=== PATIENT | male | born 1965 | race Caucasian/White ===

== ENCOUNTER → 2018-01-14 | Outpatient (CLI) | payer MEDICAID ==
[2018-01-14 09:33] LABS: ALANINE AMINOTRANSFERASE 61 U/L (21-72); CHOLESTEROL 147.82 mg/dL (0-200); TRIGLYCERIDES 108 mg/dL (<150)
[2018-01-14 09:44] LABS: DIRECT LDL 89 mg/dL (<100)
== END ==
LOC: OD 08:02
PROVIDERS: ATTEND Family Medicine Geriatric Medicine
DX: E78.4 Other hyperlipidemia (principal); Z79.899 Other long term (current) drug therapy
CPT/HCPCS: 36415; 80061; 84460

== ENCOUNTER 2018-04-16 18:54 | Emergency (ER) | payer MEDICAID ==
[2018-04-16 19:08] VITALS: BP 147/90
[2018-04-16] MEDS ORDERED: ASPIRIN 81 MG TABLET, CHEWABLE PO ONE (19:28)
--- NOTE | 2018-04-16 19:56 | RADIOLOGY REPORT (SQ) ---
EXAM DESCRIPTION: CHEST SINGLE VIEW COMPLETED DATE/TIME: 04/16/2018 7:38 pm REASON FOR STUDY: cp COMPARISON: None. EXAM PARAMETERS: NUMBER OF VIEWS: One view. TECHNIQUE: Single frontal radiographic view of the chest acquired. RADIATION DOSE: NA LIMITATIONS: None. FINDINGS: LUNGS AND PLEURA: Minimal linear subsegmental atelectasis -scarring in the lung bases. No consolidation, masses or pneumothorax. No pleural effusion. MEDIASTINUM AND HILAR STRUCTURES: No masses. Contour normal. HEART AND VASCULAR STRUCTURES: Heart normal in size. Normal vasculature. BONES: No acute findings. HARDWARE: Spinal nerve stimulator. Lower thoracic hardware. OTHER: No other significant finding. IMPRESSION: Minimal linear subsegmental atelectasis -scarring in the lung bases. No consolidation. TECHNICAL DOCUMENTATION: JOB ID: [id number] [id number] [employer]- All Rights Reserved Reading location - IP/workstation name: [email or web address]
--- NOTE | 2018-04-16 20:22 | ER Document Report ---
ED Medical Screen (RME) - General Chief Complaint: Chest Pain Stated Complaint: CHEST PAIN/SOB Time Seen by Provider: 04/16/18 20:08 Notes: Patient says that he was sitting in a chair when he suddenly experienced pain in the left chest. He says he felt short of breath and was taking deep breaths and the episode lasted for 5-10 minutes and then went away. Patient has never had anything like this before. He has had a low-grade fever today. Patient has a history of strokes and a right carotid endarterectomy in 2011. He has high cholesterol. Takes a baby aspirin daily. Continues to smoke, however. TRAVEL OUTSIDE OF THE [place] IN LAST 30 DAYS: No - Related Data Allergies/Adverse Reactions: No Known Allergies Allergy (Unverified 04/16/18 18:56) Past Medical History - Social History Chew tobacco use (# tins/day): No Frequency of alcohol use: quit 5yrs ago - Past Medical History Cardiac Medical History: Reports: Hx Hypercholesterolemia Renal/ Medical History: Denies: Hx Peritoneal Dialysis Past Surgical History: Reports: Hx Orthopedic Surgery - back surgery Physical Exam - Vital signs Vitals: Temp Pulse Resp BP Pulse Ox 98.4 F 113 H 16 147/90 H 98 04/16/18 19:08 04/16/18 19:08 04/16/18 19:08 04/16/18 19:08 04/16/18 19:08 Course - Vital Signs Vital signs: Temp Pulse Resp BP Pulse Ox 98.4 F 113 H 16 147/90 H 98 04/16/18 19:08 04/16/18 19:08 04/16/18 19:08 04/16/18 19:08 04/16/18 19:08 Doctor's Discharge - Discharge Referrals: DOMINIQUE HARDIN MD [Primary Care Provider] - Follow up as needed
[2018-04-16 20:32] LABS: ABSOLUTE BASOPHILS # (AUTO) 0.1 10^3/uL (0.0-0.2); ABSOLUTE LYMPHOCYTES (AUTO) 2.7 10^3/uL (0.5-4.7); ABSOLUTE MONOCYTES (AUTO) 1.4 10^3/uL (0.1-1.4); ABSOLUTE NEUT (AUTO) 11.7 10^3/uL (1.7-8.2); BASOPHILS % (AUTO) 0.8 % (0-2); HEMATOCRIT 39.9 % (37.9-51.0); HEMOGLOBIN 13.5 g/dL (13.5-17.0); LYMPHOCYTES % (AUTO) 17.1 % (13-45); MEAN CORPUSCULAR HEMOGLOBIN 27.7 pg (27.0-33.4); MEAN CORPUSCULAR HGB CONC 33.8 g/dL (32.0-36.0); MEAN CORPUSCULAR VOLUME 82 fl (80-97); MONOCYTES % (AUTO) 8.8 % (3-13); PLATELET COUNT 555 10^3/uL (150-450); RED BLOOD COUNT 4.87 10^6/uL (4.35-5.55); SEGMENTED NEUTROPHILS % (AUTO) 73.3 % (42-78); TOTAL CELLS COUNTED % (AUTO) 100 %
[2018-04-16 21:00] LABS: ALANINE AMINOTRANSFERASE 41 U/L (21-72); ALBUMIN 4.2 g/dL (3.5-5.0); ALKALINE PHOSPHATASE 98 U/L (38-126); ANION GAP 14 (5-19); ASPARTATE AMINO TRANSFERASE 29 U/L (17-59); BILIRUBIN,DIRECT 0.3 mg/dL (0.0-0.4); BILIRUBIN,TOTAL 0.5 mg/dL (0.2-1.3); BLOOD UREA NITROGEN 13 mg/dL (7-20); CALCIUM 9.4 mg/dL (8.4-10.2); CARBON DIOXIDE 24 mmol/L (22-30); CHLORIDE 102 mmol/L (98-107); CREATINE KINASE 83 U/L (55-170); GLUCOSE 114 mg/dL (75-110); SODIUM 140.4 mmol/L (137-145); TOTAL PROTEIN 8.1 g/dL (6.3-8.2)
[2018-04-16 21:12] LABS: CREATINE KINASE MB 0.39 ng/mL (<4.55)
[2018-04-16 21:13] LABS: TROPONIN I < 0.012 ng/mL
--- NOTE | 2018-04-17 00:21 | EKG REPORT ---
SEVERITY:- OTHERWISE NORMAL ECG - SINUS TACHYCARDIA BORDERLINE LEFT AXIS DEVIATION : Confirmed by: Ruby Roper MD 17-Apr-2018 00:21:19
== END 2018-04-16 23:00 | disposition left against medical advice (07) ==
LOC: ER 18:54
DX: R07.9 Chest pain, unspecified (principal); R06.02 Shortness of breath; E78.00 Pure hypercholesterolemia, unspecified; Z79.82 Long term (current) use of aspirin; F17.200 Nicotine dependence, unspecified, uncomplicated; Z86.73 Personal history of transient ischemic attack (TIA), and cerebral infarction without residual deficits
CPT/HCPCS: 36415; 71045; 80053; 82550; 82553; 84484; 85025; 85379; 93005; 93010; 99281

== ENCOUNTER 2018-04-17 11:11 | Emergency (ER) | payer MEDICAID ==
[2018-04-17 11:24] VITALS: BP 130/88
--- NOTE | 2018-04-17 12:33 | ER Document Report ---
ED General - General Chief Complaint: Chest Pain Stated Complaint: CHEST PAIN Time Seen by Provider: 04/17/18 12:11 Notes: Patient states that he has been having chest pain, fever and cough on and off for the last couple of days. Came here yesterday and was seen at triage. Waited for approximately 5 more hours to get seen so decided to leave. Had an appointment this morning with a primary care doctor. Primary care doctor saw patient and referred back to the ER concerning for pulmonary embolism. Patient does not have any significant pulmonary embolism risk factors. No long trips or travel, no recent surgeries, not cancer. No family history of DVT or pulmonary embolism. Patient does smoke. Patient is on pain management for chronic back pain. Has been having a fever. Yesterday had a fever 102. Denies any leg pain or leg swelling. Denies any other major complaints at this time other than feeling weak. TRAVEL OUTSIDE OF THE [place] IN LAST 30 DAYS: No - HPI Onset: Yesterday Onset/Duration: Gradual, Constant Quality of pain: Achy Severity: Mild Pain Level: 1 Associated symptoms: Fever, Weakness - Related Data Allergies/Adverse Reactions: No Known Allergies Allergy (Unverified 04/16/18 18:56) Past Medical History - General Information source: Patient - Social History Smoking Status: Current Every Day Smoker Cigarette use (# per day): Yes Frequency of alcohol use: None Drug Abuse: None Lives with: Family Family History: CAD - Past Medical History Cardiac Medical History: Reports: Hx Hypercholesterolemia Renal/ Medical History: Denies: Hx Peritoneal Dialysis Past Surgical History: Reports: Hx Orthopedic Surgery - back surgery Review of Systems - Review of Systems Constitutional: Fever, Weakness. denies: Malaise EENT: denies: Eye pain, Difficulty swallowing, Throat swelling, Vertigo Cardiovascular: Chest pain. denies: Palpitations, Heart racing Respiratory: Hurts to breathe, Short of breath. denies: Cough, Wheezing Gastrointestinal: denies: Abdominal pain, Diarrhea, Nausea, Vomiting Genitourinary: denies: Burning, Flank pain, Hematuria Musculoskeletal: Back pain. denies: Joint pain, Muscle pain, Leg swelling Skin: denies: Change in color, Change in hair/nails, Dryness, Lesions, Lumps, Rash Neurological/Psychological: denies: Confusion, Weakness, Numbness Physical Exam - Vital signs Vitals: Temp Pulse Resp BP Pulse Ox 97.4 F 92 16 130/88 H 98 04/17/18 11:23 04/17/18 11:23 04/17/18 11:23 04/17/18 11:23 04/17/18 11:23 Interpretation: Normal - General General appearance: Appears well, Alert - HEENT Head: Normocephalic, Atraumatic Eyes: Normal Pupils: PERRL - Respiratory Respiratory status: No respiratory distress Chest status: Nontender Breath sounds: Other - Faint crackles bilateral lower lobes Chest palpation: Normal - Cardiovascular Rhythm: Regular Heart sounds: Normal auscultation Murmur: No - Abdominal Inspection: Normal Distension: No distension Bowel sounds: Normal Tenderness: Nontender Organomegaly: No organomegaly - Back Back: Normal, Nontender - Extremities General upper extremity: Normal inspection, Nontender, Normal color, Normal ROM , Normal temperature. No: Edema General lower extremity: Normal inspection, Nontender, Normal color, Normal ROM , Normal temperature, Normal weight bearing. No: Edema, Eileen's sign - Neurological Neuro grossly intact: Yes Cognition: Normal Orientation: AAOx4 [place] Coma Scale Eye Opening: Spontaneous Pranay Coma Scale Verbal: Oriented [place] Coma Scale Motor: Obeys Commands Pranay Coma Scale Total: 15 Speech: Normal Motor strength normal: LUE, RUE, LLE, RLE Sensory: Normal - Psychological Associated symptoms: Normal affect, Normal mood - Skin Skin Temperature: Warm Skin Moisture: Dry Skin Color: Normal Course - Re-evaluation Re-evalutation: 04/17/18 12:36 Labs yesterday reviewed. Extremely elevated d-dimer. Will get CT scan and repeat labs at this time. 04/17/18 13:55 Patient with no significant abnormalities on EKG. Slightly elevated WBC count, normal troponin, unchanged EKG, CT scan of the chest to rule out pulmonary embolism was unremarkable. Patient denies any major pain in the chest. At this time being that he is a smoker and had a slightly elevated white blood cell count fever may treat as a bronchitis. Patient is comfortable with this plan. Strict warning signs were given with regards to acute coronary syndrome and the risks thereof. Patient verbalized understanding and if he develops arm pain, nausea, chest pain, heaviness or other symptoms he should return. At this time comfortable discharging. - Vital Signs Vital signs: Temp Pulse Resp BP Pulse Ox 97.4 F 92 16 130/88 H 98 04/17/18 11:23 04/17/18 11:23 04/17/18 11:23 04/17/18 11:23 04/17/18 11:23 - Laboratory Result Diagrams: 04/17/18 12:13 04/17/18 12:13 Laboratory results interpreted by me: 04/17/18 04/17/18 12:13 12:13 WBC 13.5 H RDW 14.1 H Plt Count 547 H Absolute Neutrophils 9.6 H Glucose 112 H - EKG Interpretation by Me EKG shows normal: Sinus rhythm, [place], Intervals, QRS Complexes, ST-T Waves Discharge - Discharge Clinical Impression: Bronchitis Condition: Good Disposition: HOME, SELF-CARE Instructions: Bronchitis ([facility]) Additional Instructions: In the event that you develop worsening symptoms, chest pain, heaviness in the left arm, pain in the left arm or jaw, vomiting or other concerns please return immediately. Please follow-up with your regular doctor for further testing. Prescriptions: Albuterol Sulfate [Proair HFA Inhalation Aerosol 8.5 gm MDI] 2 puff IH Q4H PRN # 1 mdi PRN Reason: Azithromycin [Zithromax 250 mg Tablet] 250 mg PO ASDIR #6 tablet Prednisone [Deltasone 20 mg Tablet] 3 tab PO DAILY 4 Days #12 tablet Referrals: DOMINIQUE HARDIN MD [Primary Care Provider] - Follow up in 3-5 days
[2018-04-17 12:49] LABS: ABSOLUTE BASOPHILS # (AUTO) 0.2 10^3/uL (0.0-0.2); ABSOLUTE LYMPHOCYTES (AUTO) 2.4 10^3/uL (0.5-4.7); ABSOLUTE MONOCYTES (AUTO) 1.3 10^3/uL (0.1-1.4); ABSOLUTE NEUT (AUTO) 9.6 10^3/uL (1.7-8.2); BASOPHILS % (AUTO) 1.2 % (0-2); EOSINOPHILS % (AUTO) 0.2 % (0-6); HEMATOCRIT 40.2 % (37.9-51.0); HEMOGLOBIN 13.7 g/dL (13.5-17.0); MEAN CORPUSCULAR HEMOGLOBIN 28.2 pg (27.0-33.4); MEAN CORPUSCULAR HGB CONC 34.1 g/dL (32.0-36.0); MEAN CORPUSCULAR VOLUME 83 fl (80-97); MONOCYTES % (AUTO) 9.4 % (3-13); PLATELET COUNT 547 10^3/uL (150-450); RED BLOOD COUNT 4.85 10^6/uL (4.35-5.55); RED CELL DISTRIBUTION WIDTH 14.1 % (11.5-14.0); SEGMENTED NEUTROPHILS % (AUTO) 71.2 % (42-78); TOTAL CELLS COUNTED % (AUTO) 100 %; WHITE BLOOD COUNT 13.5 10^3/uL (4.0-10.5)
[2018-04-17 13:02] LABS: ALANINE AMINOTRANSFERASE 58 U/L (21-72); ALBUMIN 4.1 g/dL (3.5-5.0); ALKALINE PHOSPHATASE 105 U/L (38-126); ANION GAP 10 (5-19); ASPARTATE AMINO TRANSFERASE 46 U/L (17-59); BILIRUBIN,DIRECT 0.3 mg/dL (0.0-0.4); BILIRUBIN,TOTAL 0.4 mg/dL (0.2-1.3); BLOOD UREA NITROGEN 14 mg/dL (7-20); CALCIUM 9.3 mg/dL (8.4-10.2); CARBON DIOXIDE 25 mmol/L (22-30); CHLORIDE 107 mmol/L (98-107); GLUCOSE 112 mg/dL (75-110); POTASSIUM 4.1 mmol/L (3.6-5.0); SODIUM 142.4 mmol/L (137-145); TOTAL PROTEIN 7.8 g/dL (6.3-8.2)
--- NOTE | 2018-04-17 13:23 | RADIOLOGY REPORT (SQ) ---
EXAM DESCRIPTION: CTA CHEST COMPLETED DATE/TIME: 04/17/2018 1:09 pm REASON FOR STUDY: chest pain COMPARISON: Chest x-ray dated 04/16/2018 TECHNIQUE: CT scan of the chest performed using helical scanning technique with dynamic intravenous contrast injection. Images reviewed with lung, soft tissue and bone windows. Reconstructed coronal and sagittal MPR images reviewed. Additional 3 dimensional post-processing performed to develop Maximal Intensity Projection images (MD P). All images stored on PACS. All CT scanners at this facility use dose modulation, iterative reconstruction, and/or weight based d osing when appropriate to reduce radiation dose to as low as reasonably achievable (ALARA). [facility]: Dose Right [facility]: CareDose [facility]: Dose Right [facility]: Teradose 4D [facility]: [place] CONTRAST TYPE AND DOSE: contrast/concentration: Isovue 370.00 mg/ml; Total Contrast Delivered: 73.0 ml; Total Saline Delivered: 90.0 ml Contrast bolus optimized for the pulmonary arteries. Not diagnostic for the aorta. RENAL FUNCTION: Creatinine 0.87 RADIATION DOSE: CT Rad equipment meets quality standard of care and radiation dose reduction techniq ues were employed. CTDIvol: 13.2 - 17.1 mGy. DLP: 621 mGy-cm. . LIMITATIONS: Artifact is identified related to orthopedic hardware at the thoracolumbar junction FINDINGS: LUNGS AND PLEURA: No masses, infiltrates, or pneumothorax. No pleural effusions or pleura l calcifications. Calcified granuloma are identified at the level of the right middle lobe and right lower lobe. AORTA AND GREAT VESSELS: No aneurysm. Contrast bolus not optimized for the aorta. HEART: No pericardial effusion. No significant coronary artery calcifications. PULMONARY ARTERIES: No emboli visualized in the main pulmonary arteries or the segmental branches. HILAR AND MEDIASTINAL STRUCTURES: Calcified granuloma are identified in both hilar regions. HARDWARE: None in the chest. UPPER ABDOMEN: No significant findings. Limited exam. THYROID AND OTHER SOFT TISSUES: No masses. No adenopathy. BONES: No acute or significant finding. 3D MIPS: Confirm above findings. OTHER: No other significant finding. IMPRESSION: No evidence for pulmonary embolic disease. No acute consolidations or pleural effusions . Old granulomatous disease. Other findings as noted above. COMMENT: Quality ID # [id number]: Final reports with documentation of one or more dose reduction techniques (e.g., Automated exposure control, adjustment of the mA and/or kV according to patient size, use of iterative reconstruction technique) TECHNICAL DOCUMENTATION: JOB ID: [id number] [employer]- All Rights Reserved Reading location - IP/workstation name: [email or web address]
[2018-04-17] MEDS ORDERED: ALBUTEROL SULFATE HFA (90 MCG/PUFF) 8 GM MDI (1 MDI/ER DISP) IH ONE (13:57)
[2018-04-17] MEDS ORDERED: PREDNISONE 20 MG TABLET PO ONE (13:57)
--- NOTE | 2018-04-17 15:13 | EKG REPORT ---
SEVERITY:- ABNORMAL ECG - SINUS RHYTHM PROBABLE INFERIOR INFARCT, OLD : Confirmed by: Ruby Roper MD 17-Apr-2018 15:12:32
== END 2018-04-17 14:33 | disposition home or self-care (01) ==
LOC: ER 11:11
DX: J40 Bronchitis, not specified as acute or chronic (principal); R79.1 Abnormal coagulation profile; R50.9 Fever, unspecified; R07.1 Chest pain on breathing; R05 Cough; R53.1 Weakness; F17.210 Nicotine dependence, cigarettes, uncomplicated; M54.9 Dorsalgia, unspecified; G89.29 Other chronic pain; Z82.49 Family history of ischemic heart disease and other diseases of the circulatory system
CPT/HCPCS: 93005; 99285; 36415; 87040; 85025; 80053; 84484; 83605; 71275; 93010; J7512; J3490

== ENCOUNTER 2018-04-18 08:57 | Emergency (ER) | payer MEDICAID ==
[2018-04-18] MEDS ORDERED: MAG HYDROX/AL HYDROX/SIMETH SUSP 30 ML UDCUP PO ONE (09:30)
[2018-04-18] MEDS ORDERED: ONDANSETRON 4 MG TAB.RAPDIS PO ONE (09:30)
[2018-04-18] MEDS ORDERED: METOCLOPRAMIDE HCL ORAL SOLN 10 MG/10 ML UDCUP PO ONE (09:30)
[2018-04-18] MEDS ORDERED: LIDOCAINE 2% VISCOUS SOLN 20 ML UDCUP PO ONE (09:30)
--- NOTE | 2018-04-18 09:38 | ER Document Report ---
ED GI/ - General Chief Complaint: Nausea/Vomiting/Diarrhea Stated Complaint: NAUSEA VOMITING Time Seen by Provider: 04/18/18 09:30 Mode of Arrival: Ambulatory Information source: Patient Notes: Chief complaint: abdominal pain: History of complain:( obtained from----patient) 52 years old male was seen here yesterday was given prednisolone 60 mg and Zithromax, woke up this morning with epigastric pain and burning sensation and vomited couple of times. Vomitus contained clear fluid there were no blood or blackish discoloration. Unable to take his medication therefore he came to the ED. Denies any diarrhea denies any black stools. Denies any fever chills or other constitutional symptoms. Onset: Sudden Duration: Since this morning Severity: Mild to moderate Quality: Burning Context: History of bleeding ulcers in the past long time ago Exacerbating factor and relieving factors: Medication REVIEW OF SYSTEMS: CONSTITUTIONAL : Denies fever, chills, or sweats. Denies recent illness. EENT: Denies eye, ear, throat, or mouth pain or symptoms. Denies nasal or sinus congestion or discharge. Denies throat, tongue, or mouth swelling or difficulty swallowing. CARDIOVASCULAR: Denies chest pain. Denies palpitations or racing or irregular heart beat. Denies ankle edema. RESPIRATORY: Denies cough, cold, or chest congestion. Denies shortness of breath, difficulty breathing, or wheezing. GASTROINTESTINAL: . Denies blood in vomitus, stools, or per rectum. Denies black, tarry stools. Denies constipation. GENITOURINARY: Denies difficulty urinating, painful urination, burning, frequency, blood in urine, or discharge. FEMALE GENITOURINARY: Denies vaginal bleeding, heavy or abnormal periods, irregular periods. Denies vaginal discharge or odor. MUSCULOSKELETAL: Denies back or neck pain or stiffness. Denies joint pain or swelling. SKIN: Denies rash, lesions or sores. HEMATOLOGIC : Denies easy bruising or bleeding. LYMPHATIC: Denies swollen, enlarged glands. NEUROLOGICAL: Denies confusion or altered mental status. Denies passing out or loss of consciousness. Denies dizziness or lightheadedness. Denies headache. Denies weakness or paralysis or loss of use of either side. Denies problems with gait or speech. Denies sensory loss, numbness, or tingling. Denies seizures. PSYCHIATRIC: Denies anxiety or stress. Denies depression, suicidal ideation, or homicidal ideation. ALL OTHER SYSTEMS REVIEWED AND NEGATIVE. PHYSICAL EXAMINATION: GENERAL: Well-appearing, well-nourished and in Mild acute distress. HEAD: Atraumatic, normocephalic. EYES: Pupils equal round and reactive to light, extraocular movements intact, conjunctiva are normal. ENT: Nares patent, oropharynx clear without exudates. Moist mucous membranes. NECK: Normal range of motion, supple without lymphadenopathy LUNGS: Breath sounds clear to auscultation bilaterally and equal. No wheezes rales or rhonchi. HEART: Regular rate and rhythm without murmurs ABDOMEN: Soft, sharp epigastric tenderness noted, nondistended abdomen. No guarding, no rebound. No masses appreciated. Female : deferred Musculoskeletal: Normal range of motion, no pitting or edema. No cyanosis. NEUROLOGICAL: Cranial nerves grossly intact. Normal speech, normal gait. Normal sensory, motor exams PSYCH: Normal mood, normal affect. SKIN: Warm, Dry, normal turgor, no rashes or lesions noted. Dictation was performed using [employer] voice recognition software TRAVEL OUTSIDE OF THE [place] IN LAST 30 DAYS: No - HPI Notes: 04/18/18 09:33 Dictated - Related Data Allergies/Adverse Reactions: No Known Allergies Allergy (Verified 04/18/18 08:57) Past Medical History - Social History Smoking Status: Former Smoker Chew tobacco use (# tins/day): No Frequency of alcohol use: None Drug Abuse: None Family History: Reviewed & Not Pertinent, CAD Patient has suicidal ideation: No Patient has homicidal ideation: No - Past Medical History Cardiac Medical History: Reports: Hx Hypercholesterolemia Renal/ Medical History: Denies: Hx Peritoneal Dialysis GI Medical History: Reports: Hx Ulcer Past Surgical History: Reports: Hx Orthopedic Surgery - back surgery Review of Systems - Review of Systems Notes: Dictated Physical Exam - Vital signs Vitals: Temp Pulse Resp BP Pulse Ox 97.7 F 105 H 20 136/86 H 97 04/18/18 09:01 04/18/18 09:01 04/18/18 09:01 04/18/18 09:01 04/18/18 09:01 - Notes Notes: Dictated Course - Vital Signs Vital signs: Temp Pulse Resp BP Pulse Ox 97.7 F 105 H 20 136/86 H 97 04/18/18 09:01 04/18/18 09:01 04/18/18 09:01 04/18/18 09:01 04/18/18 09:01 Discharge - Discharge Referrals: DOMINIQUE HARDIN MD [Primary Care Provider] - Follow up as needed
[2018-04-18 10:01] LABS: HEMOGLOBIN 14.3 g/dL (13.5-17.0); MEAN CORPUSCULAR HEMOGLOBIN 28.2 pg (27.0-33.4); MEAN CORPUSCULAR HGB CONC 34.1 g/dL (32.0-36.0); MEAN CORPUSCULAR VOLUME 83 fl (80-97); PLATELET COUNT 644 10^3/uL (150-450); RED BLOOD COUNT 5.09 10^6/uL (4.35-5.55); RED CELL DISTRIBUTION WIDTH 14.3 % (11.5-14.0); WHITE BLOOD COUNT 22.4 10^3/uL (4.0-10.5)
[2018-04-18] MEDS ORDERED: FENTANYL CITRATE INJ/PF 100 MCG/2 ML AMPUL IV ONE (10:12)
[2018-04-18] MEDS ORDERED: NORMAL SALINE 1000 ML 1,000 ML IV PRN (10:13)
[2018-04-18 10:24] LABS: ABSOLUTE LYMPHOCYTES# (MANUAL) 4.5 10^3/uL (0.5-4.7); ABSOLUTE MONOCYTES # (MANUAL) 2.5 10^3/uL (0.1-1.4); ABSOLUTE NEUTROPHILS# (MANUAL) 15.2 10^3/uL (1.7-8.2); BAND NEUTROPHILS % (MANUAL) 1 % (3-5); BASOPHILS % (MANUAL) 1 % (0-2); EOSINOPHILS % (MANUAL) 0 % (0-6); LYMPHOCYTES % (MANUAL) 16 % (13-45); MONOCYTES % (MANUAL) 11 % (3-13); SEGMENTED NEUTROPHILS % (MAN) 67 % (42-78); TOTAL CELLS COUNTED 100
[2018-04-18 10:25] LABS: PLATELET COMMENT INCREASED; POLYCHROMASIA SLIGHT; ROULEAUX SLIGHT; TOXIC GRANULATION SLIGHT
[2018-04-18 10:27] LABS: ALANINE AMINOTRANSFERASE 52 U/L (21-72); ALBUMIN 4.1 g/dL (3.5-5.0); ALKALINE PHOSPHATASE 101 U/L (38-126); ANION GAP 16 (5-19); ASPARTATE AMINO TRANSFERASE 29 U/L (17-59); BILIRUBIN,DIRECT 0.3 mg/dL (0.0-0.4); BILIRUBIN,TOTAL 0.3 mg/dL (0.2-1.3); BLOOD UREA NITROGEN 14 mg/dL (7-20); CALCIUM 10.8 mg/dL (8.4-10.2); CARBON DIOXIDE 27 mmol/L (22-30); CHLORIDE 101 mmol/L (98-107); GLUCOSE 127 mg/dL (75-110); POTASSIUM 4.8 mmol/L (3.6-5.0); SODIUM 143.7 mmol/L (137-145); TOTAL PROTEIN 8.3 g/dL (6.3-8.2)
--- NOTE | 2018-04-18 10:36 | ER Document Report ---
ED GI/ - General Chief Complaint: Nausea/Vomiting/Diarrhea Stated Complaint: NAUSEA VOMITING Time Seen by Provider: 04/18/18 09:30 Mode of Arrival: Ambulatory Information source: Patient Notes: Patient is a 52-year-old male who states no past medical history who presented initially 2 days ago with a cough, congestion, temperature 102 according to the patient's report with some nasal congestion without phlegm. Patient was seen here and evaluated with an x-ray of the chest that did not show pneumonia. Patient states his cough is improved. He was given steroids and antibiotics. Patient states over the last 24 hours he has had 4 bouts of vomiting and 4 bouts of diarrhea. No blood in the vomit or diarrhea. Patient states yesterday he had some right lower quadrant abdominal pain but denies any and all abdominal pain at this time. Patient states his last bout of diarrhea was last evening. He is vomited 1 this morning. Patient states that his chest discomfort is improved. Patient denies any calf pain, leg swelling, recent trips or travel, or any contact with nursing care facilities or other possible C. difficile colitis carriers. TRAVEL OUTSIDE OF THE [place] IN LAST 30 DAYS: No - HPI Patient complains to provider of: Other - See above Onset: Other Timing/Duration: Gone Quality of pain: Achy Severity at maximum: Moderate Severity in ED: None Pain Level: Denies Location: Other - See above Associated symptoms: Other - See above Exacerbated by: Denies Relieved by: Denies Similar symptoms previously: No Recently seen / treated by doctor: Yes - Related Data Allergies/Adverse Reactions: No Known Allergies Allergy (Verified 04/18/18 08:57) Past Medical History - General Information source: Patient - Social History Smoking Status: Former Smoker Cigarette use (# per day): No Chew tobacco use (# tins/day): No Smoking Education Provided: No Frequency of alcohol use: None Drug Abuse: None Family History: Reviewed & Not Pertinent, CAD Patient has suicidal ideation: No Patient has homicidal ideation: No - Past Medical History Cardiac Medical History: Reports: Hx Hypercholesterolemia Renal/ Medical History: Denies: Hx Peritoneal Dialysis GI Medical History: Reports: Hx Ulcer Past Surgical History: Reports: Hx Orthopedic Surgery - back surgery Review of Systems - Review of Systems Constitutional: denies: Fever EENT: denies: Eye discharge, Nose discharge Respiratory: denies: Short of breath Gastrointestinal: Diarrhea, Vomiting Genitourinary: denies: Dysuria Musculoskeletal: denies: Leg swelling Skin: Other - no hives. denies: Rash Neurological/Psychological: Other - no slurred speech -: Yes All other systems reviewed and negative Physical Exam - Vital signs Vitals: Temp Pulse Resp BP Pulse Ox 97.7 F 105 H 20 136/86 H 97 04/18/18 09:01 04/18/18 09:01 04/18/18 09:01 04/18/18 09:01 04/18/18 09:01 Notes: Reviewed vital signs and nursing note as charted by RN. CONSTITUTIONAL: Alert and oriented and responds appropriately to questions. Well -appearing; well-nourished HEAD: Normocephalic; atraumatic EYES: Sclerae non-icteric ENT: Normal nose; no rhinorrhea; moist mucous membranes; pharynx without lesions noted NECK: Supple without meningismus; non-tender; no cervical lymphadenopathy, no masses CARD: Regular rate and rhythm; no murmurs, no clicks, no rubs, no gallops; symmetric distal pulses RESP: Normal chest excursion without splinting or tachypnea; breath sounds clear and equal bilaterally; no wheezes, no rhonchi, no rales ABD/GI: Normal bowel sounds; non-distended; soft, non-tender currently to deep palpation of all 4 quadrants of the abdomen; no abdominal bruits or palpable masses present BACK: The back appears normal and is non-tender to palpation, there is no CVA tenderness EXT: Normal ROM in all joints; non-tender to palpation; no cyanosis, no effusions, no edema SKIN: Normal color for age and race; no acute lesions noted NEURO: Moves all extremities equally; Motor and sensory function intact PSYCH: The patient's mood and manner are appropriate. Grooming and personal hygiene are appropriate. Course - Re-evaluation Re-evalutation: 04/18/18 10:36 Given the history and physical examination with no tenderness to deep palpation of all 4 quadrants of the abdomen, I do not believe CT imaging is necessary at this moment. We will order liver panel, lipase, antinausea medications, and fluids. White blood cell count is recorded. This is consistent possibly with gastroenteritis as well as the onset of steroid use yesterday. We will reexamine and reassess the abdomen. 04/18/18 10:39 Temperatures recorded on his initial triage on the and his visit on the show a temperature less than 99.0. 04/18/18 11:05 EKG shows a heart of 92, normal sinus rhythm, normal axis, no obvious ST elevation or depression 04/18/18 12:50 Labs as recorded. Vital signs are stable. I have ordered a complete reexamination of the patient's abdomen. Patient still denies any and all pain on my examination interview. Patient has no tenderness to deep palpation of all 4 quadrants of the abdomen including the epigastric right upper and lower quadrants. Patient still denies any chest pain. Given the above history and physical examination with no pneumonia shown on CT scan, afebrile here once again, I will have the patient discontinue the antibiotics. Patient denies any nausea and has not had any vomiting or diarrhea here in the emergency department. I will provide a small course of Zofran upon discharge with strict return precautions. - Vital Signs Vital signs: Temp Pulse Resp BP Pulse Ox 97.7 F 105 H 20 136/86 H 97 04/18/18 09:01 04/18/18 09:01 04/18/18 09:01 04/18/18 09:01 04/18/18 09:01 - Laboratory Result Diagrams: 04/18/18 09:39 04/18/18 09:39 Laboratory results interpreted by me: 04/18/18 04/18/18 09:39 09:39 WBC 22.4 H RDW 14.3 H Plt Count 644 H Band Neutrophils % 1 L Abs Neuts (Manual) 15.2 H Abs Monocytes (Manual) 2.5 H Glucose 127 H Calcium 10.8 H Total Protein 8.3 H Discharge - Discharge Clinical Impression: Nausea vomiting and diarrhea Condition: Good Disposition: HOME, SELF-CARE Instructions: Antinausea Medication ([facility]), Diarrhea, Nonspecific ([facility]), Vomiting ([facility]) Additional Instructions: Come back immediately for any repeat vomiting or diarrhea, any chest pain, shortness of breath, abdominal pain or discomfort, repeat fevers, or any other acute problems. Please make sure that you follow-up with the primary care physician as we have discussed. Prescriptions: Ondansetron [Zofran Odt 4 mg Tablet] 1 tab PO Q6H #15 tab.rapdis Referrals: DOMINIQUE HARDIN MD [Primary Care Provider] - Follow up as needed
[2018-04-18 12:56] LABS: APPEARANCE,URINE SLIGHTLY-CLOUDY; BILIRUBIN,URINE NEGATIVE (NEGATIVE); COLOR,URINE YELLOW; GLUCOSE, URINE 50 mg/dL (NEGATIVE); KETONES,URINE NEGATIVE (NEGATIVE); LEUKOCYTE ESTERASE,URINE MODERATE (NEGATIVE); NITRITE,URINE NEGATIVE (NEGATIVE); PROTEIN,URINE 30 mg/dL (NEGATIVE); URINE SPECIFIC GRAVITY 1.021; UROBILINOGEN,URINE NEGATIVE mg/dL (<2.0)
[2018-04-18 13:26] VITALS: BP 128/84
--- NOTE | 2018-04-19 00:04 | EKG REPORT ---
SEVERITY:- ABNORMAL ECG - SINUS RHYTHM PROBABLE INFERIOR INFARCT, OLD PROBABLE POSTERIOR INFARCT : Confirmed by: Ruby Roper MD 19-Apr-2018 00:03:52
== END 2018-04-18 13:20 | disposition home or self-care (01) ==
LOC: ER 08:57
DX: R11.2 Nausea with vomiting, unspecified (principal); R19.7 Diarrhea, unspecified; R05 Cough; R09.81 Nasal congestion
CPT/HCPCS: 93005; 99284; 96361; 96374; 36415; 83690; 85025; 80076; 80048; 81001; 93010; S0119; J3010; J3490 ×3; J7030